=== PATIENT | male | born 1975 | race Hispanic/Latino ===

== ENCOUNTER 2016-09-03 00:44 | Emergency (ER) | payer OTHER ==
[2016-09-03 00:51] VITALS: BP 160/102; PULSE 77; RESP 18; O2SAT 97
[2016-09-03 01:25] LABS: BASOPHILS % (AUTO) 0.5 % (0-3); EOSINOPHILS % (AUTO) 3.8 % (0-5); MONOCYTES % (AUTO) 6.2 % (4-12); Mean Corpuscular Hemoglobin 33.5 pg (27.0-35.0); Mean Corpuscular Volume 90.2 fL (81-100); NEUTROPHILS % (AUTO) 40.3 % (40-74); Platelet Count 224 bil/L (150-400)
--- NOTE | 2016-09-03 01:48 | ED.REPORT ---
HPI-Abd Pain M 40 and Over Date of Service September 03, 2016 ED Provider: aBrrington Walters MD Nursing Notes Stated Complaint: ABDOMINAL PAIN Chief Complaint: Chest Pain Nursing Notes Reviewed: Yes Allergies: Coded Allergies: No Known Allergies (Unverified , 09/03/16) General Time Seen by MD: 01:47 Physical Exam Initial Vital Signs Vital Signs (First) Date Time Temp Pulse Resp B/P Pulse Ox O2 Delivery O2 Flow Rate FiO2 09/03/16 00:51 36.6 77 18 160/102 97 Room Air Interpretation & Diagnostics Lab Results Interpretation Result Diagram: 09/03/16 0115 09/03/16 0115 Test 09/03/16 01:15 White Blood Count 6.3th/mm3 (3.8-10.1) Red Blood Count 4.60mil/mm3 (4.40-5.80) Hemoglobin 15.4g/dL (13.8-17.2) Hematocrit 41.5% (41.0-50.0) Mean Corpuscular Volume 90.2fL (81-100) Mean Corpuscular Hemoglobin 33.5pg (27.0-35.0) Mean Corpuscular Hemoglobin Concent 37.1% (32.0-37.0) Red Cell Distribution Width 11.8% (12.3-15.4) Platelet Count 224bil/L (150-400) Neutrophils (%) (Auto) 40.3% (40-74) Lymphocytes (%) (Auto) 49.0% (14-46) Monocytes (%) (Auto) 6.2% (4-12) Eosinophils (%) (Auto) 3.8% (0-5) Basophils (%) (Auto) 0.5% (0-3) Sodium Level 138mEq/L (134-144) Potassium Level 3.6mEq/L (3.5-5.2) Chloride Level 99mEq/L (97-108) Carbon Dioxide Level 22mmol/L (18-29) Blood Urea Nitrogen 12mg/dL (6-24) Creatinine 0.67mg/dL (0.76-1.27) Estimat Glomerular Filtration Rate 140mL/min (>59) Glucose Level 121mg/dL (60-99) Calcium Level 8.9mg/dL (8.5-10.1) Magnesium Level 1.9mg/dL (1.6-2.6) Total Bilirubin 0.5mg/dL (0.0-1.2) Aspartate Amino Transf (AST/SGOT) 42U/L (0-50) Alanine Aminotransferase (ALT/SGPT) 73U/L (0-44) Alkaline Phosphatase 98U/L (25-150) Troponin T 0.010ug/L (0.0-0.011) Total Protein 7.5g/dL (6.4-8.4) Albumin 4.4g/dL (3.4-5.0) Discharge & Departure Vital Signs - All Vital Signs Date Time Temp Pulse Resp B/P Pulse Ox O2 Delivery O2 Flow Rate FiO2 09/03/16 02:10 71 12 152/97 98 Room Air 09/03/16 00:51 36.6 77 18 160/102 97 Room Air Referrals: Samantha Husain MD (PCP) Barrington Walters MD September 03, 2016 01:48
[2016-09-03 01:57] LABS: TROPONIN T 0.01 ug/L (0.0-0.011)
[2016-09-03 02:01] LABS: Magnesium 1.9 mg/dL (1.6-2.6)
[2016-09-03 02:10] VITALS: BP 152/97; PULSE 71; RESP 12; O2SAT 98
--- NOTE | 2016-09-03 02:26 | ED.REPORT ---
HPI-Chest Pain 40 and Over Date of Service September 03, 2016 ED Provider: Barrington Walters MD A 41 year old male with no pertinent medical history presents to the ED with substernal chest pain that began 2 days ago. The pain has become increasingly worse since onset. The pain is exacerbated by deep breath and is associated with SOB. Patient describes the pain as a "squeezing" pain. He denies cough, fever or abdominal pain. Patient denies any recent injuries. Nursing Notes Stated Complaint: ABDOMINAL PAIN Chief Complaint: Chest Pain Nursing Notes Reviewed: Yes Allergies: Coded Allergies: No Known Allergies (Unverified , 09/03/16) General Time Seen by MD: 01:47 Chief Complaint Chest pain Hx Obtained From: Patient Arrived By: Walk-in Sudden in Onset?: No Onset Occurred: 2 days ago Symptom Duration: Since onset Location: : Chest left: Chest right Quality: Painful Radiation: : Does not radiate Migration/Movement: Reports: None Severity: Current: Mild Severity: Maximum: Moderate Associated with: Reports: Shortness of Breath, Denies: Cough, non-productive, Cough, productive, Cough, with hemoptysis, Fever Pertinent Negative: Pt denies other symptoms Recent Healthcare: No recent doctor visit Risk Factors )( CAD Risk Stratification Risk factors reviewed )( TAD Risk Stratification Risk factors reviewed )( PE Risk Stratification Risk factors reviewed Past Medical History Past Medical History None reported Past Surgical History None reported Smoking History Unknown if Ever Smoker Social History Other Social History: Good social support, Local resident Ambulatory Status Independent Review of Systems Constitutional: Denies: Chills, Fever Respiratory: Reports: Shortness of breath, Denies: Non-productive cough Cardiovascular: Reports: Chest pain Complete sys rev & neg: except as marked. Physical Exam Initial Vital Signs Vital Signs (First) Date Time Temp Pulse Resp B/P Pulse Ox O2 Delivery O2 Flow Rate FiO2 09/03/16 00:51 36.6 77 18 160/102 97 Room Air Initial VS: Reviewed, Vital signs normal, Vital signs abnormal Head / Eyes: Atraumatic, Normocephalic, PERRL Neck: Supple, Non-tender, Full range of motion Extremities: Vascular intact, Neuro intact, No swelling, No tenderness Skin: Warm, Dry, No cyanosis Neurologic: Alert, Oriented, Nonfocal Psychiatric: Mood/affect normal, Behavior normal, Normal thought content General/Constitutional: Awake, Alert, No acute distress Respiratory / Chest: Atraumatic, Breath sounds NL, Breath sounds = bilat, No respiratory distress Chest Wall / Ribs: Positive: Chest tender upper L (Tenderness to the left anterior axiallry line ), Rib tender nondeformed L (Point tenderness over the ribs ) Cardiovascular: Heart rate NL, Regular rhythm, Heart sounds NL Abdomen: Atraumatic, Soft Interpretation & Diagnostics Lab Results Interpretation Result Diagram: 09/03/16 0115 09/03/16 0115 Test 09/03/16 00:58 09/03/16 01:15 09/03/16 04:40 D-Dimer < 0.50mg/L FEU (<0.50) White Blood Count 6.3th/mm3 (3.8-10.1) Red Blood Count 4.60mil/mm3 (4.40-5.80) Hemoglobin 15.4g/dL (13.8-17.2) Hematocrit 41.5% (41.0-50.0) Mean Corpuscular Volume 90.2fL (81-100) Mean Corpuscular Hemoglobin 33.5pg (27.0-35.0) Mean Corpuscular Hemoglobin Concent 37.1% (32.0-37.0) Red Cell Distribution Width 11.8% (12.3-15.4) Platelet Count 224bil/L (150-400) Neutrophils (%) (Auto) 40.3% (40-74) Lymphocytes (%) (Auto) 49.0% (14-46) Monocytes (%) (Auto) 6.2% (4-12) Eosinophils (%) (Auto) 3.8% (0-5) Basophils (%) (Auto) 0.5% (0-3) Sodium Level 138mEq/L (134-144) Potassium Level 3.6mEq/L (3.5-5.2) Chloride Level 99mEq/L (97-108) Carbon Dioxide Level 22mmol/L (18-29) Blood Urea Nitrogen 12mg/dL (6-24) Creatinine 0.67mg/dL (0.76-1.27) Estimat Glomerular Filtration Rate 140mL/min (>59) Glucose Level 121mg/dL (60-99) Calcium Level 8.9mg/dL (8.5-10.1) Magnesium Level 1.9mg/dL (1.6-2.6) Total Bilirubin 0.5mg/dL (0.0-1.2) Aspartate Amino Transf (AST/SGOT) 42U/L (0-50) Alanine Aminotransferase (ALT/SGPT) 73U/L (0-44) Alkaline Phosphatase 98U/L (25-150) Total Protein 7.5g/dL (6.4-8.4) Albumin 4.4g/dL (3.4-5.0) Troponin T 0.010ug/L (0.0-0.011) Lab values outside NL range: no clinical significance. Lab Results Interpretation: Troponin negative 2, d-dimer negative ECG Interpretation ECG Interpretation: Sinus Rhythm Rate [address] elevation, probable normal early repol pattern Time: 01:07 Interpreted by: ED physician ECG Interpretation: Sinus Rhythm Rate 71 Left ventricular hypertrophy Inferior infract ; old ST elevation Time: 04:48 Interpreted by: ED physician Repeat ECG: Repeat ECG unchanged X-Ray Chest Interpretation Chest Xray Interpretation: IMPRESSION: Normal chest X-ray Interpretation / Wet Read by: Wet read ED physician Re-Eval/Medical Decision Med Decision/Clinical Course 41-year-old male presents with chest pain which is now resolved. ED evaluation is negative to include d-dimer, chest x-ray, EKG 2 and troponin 2. He is being discharged home to follow-up with his primary doctor for further evaluation as needed. Time of Eval: 04:25 Patient Status: Condition improved Re-Evaluation/Progress Note: Patient is rechecked and is resting comfortably. He is informed of the plan to repeat troponin. Time of Eval: 05:26 Patient Status: Condition improved Re-Evaluation/Progress Note: Patient is informed of his reassuring results and diagnosis. All of the patient's questions are addressed. He understands and agrees with the treatment plan. Counseled Regarding: Diagnosis, Lab results, Need for follow-up, When/why to return to ED Discharge & Departure Primary Impression: Chest pain with low risk for cardiac etiology Disposition: Home Discharge Condition All VS Reviewed: Yes Condition: Improved Patient Instructions: Chest Pain (ED) Additional Instructions: Emergency room workup is negative to include normal EKG, normal heart enzyme tests, normal lung blood clot test, and normal chest x-ray. The patient does not appear to be serious. Recommend anti-inflammatory medications and follow- up with your regular provider. Return here as needed for worsening chest pain. Referrals: Samantha Husain MD (PCP) [employer] Attestation Portions of this note were transcribed by Angy Munguia. I, Dr. Walters personally performed the history, physical exam and medical decision-making; I reviewed and confirmed the accuracy of the information in the transcribed note. Signed by: Daphne Shannon, 09/03/16 0545. copies to: Samantha Husain MD, Howard L MD September 03, 2016 02:26 ANGY MUNGUIA September 03, 2016 02:33
[2016-09-03] MEDS ORDERED: Ketorolac 15 mg/mL Inj IVPUSH ONE (04:30)
[2016-09-03 04:42] VITALS: BP 146/96; PULSE 75; RESP 16; O2SAT 98
[2016-09-03 05:53] VITALS: BP 133/78; PULSE 70; RESP 16; O2SAT 98
--- NOTE | 2016-09-03 07:32 | DRSVH ---
PROCEDURE: X-RAY CHEST ONE VIEW, PORTABLE ([id number]) INDICATIONS: cp TECHNIQUE: One view of the chest was acquired. COMPARISON: None. FINDINGS: Surgical changes and devices: None. Lungs and pleura: No pleural effusions or pneumothorax. Lungs are clear. Mediastinum: Mediastinal contours appear normal. Heart size is normal. Bones and chest wall: No suspicious bony lesions. Overlying soft tissues appear unremarkable. IMPRESSION: No acute cardiopulmonary findings. Dictated by: Oumou Perales M.D. on 09/03/2016 at 7:30 Approved by: Oumou Perales M.D. on 09/03/2016 at 7:30
== END 2016-09-03 05:54 | disposition home or self-care (01) ==
LOC: SED 00:44
DX: R07.89 Other chest pain (principal)
CPT/HCPCS: 36415; 71010; 80053; 83735; 84484; 85025; 85378; 93005; 96374; 99285; J1885